=== PATIENT | male | born 1970 | race Caucasian/White ===

== ENCOUNTER 2017-07-15 03:47 | Emergency (ER) ==
[2017-07-15 03:47] VITALS: BMI 34.2
[2017-07-15 03:54] VITALS: BP 134/92; TEMP 97.6
[2017-07-15] MEDS ORDERED: SODIUM CHLORIDE 1,000 ML IV STA ×2 (03:59)
[2017-07-15] MEDS ORDERED: ZOFRAN 4 MG/2 ML IVP STA (03:59)
[2017-07-15] MEDS ORDERED: DILAUDID 1 MG/ML SYRINGE IVP STA (04:00)
[2017-07-15 04:11] LABS: BASOPHILS # (AUTO) 0.1 K/uL (0-0.2); BASOPHILS % (AUTO) 0.8 % (0.0-3.0); EOSINOPHILS # (AUTO) 0.4 K/ul (0.0-0.7); EOSINOPHILS % (AUTO) 4.6 % (0.0-7.0); HEMATOCRIT 44.8 % (42.0-52.0); HEMOGLOBIN 15.3 g/dl (14.0-18.0); IMMATURE GRANULOCYTE % (AUTO) 0.3 % (0.0-5.0); LYMPHOCYTES % (AUTO) 22.1 (10.0-50.0); MEAN CORPUSCULAR HGB CONC 34.2 (31.8-35.4); MONOCYTES # (AUTO) 0.6 K/uL (0.4-2.0); MONOCYTES % (AUTO) 6.7 (0-10); NEUTROPHILS % (AUTO) 65.5; PLATELET COUNT 201 10^3/uL (140-440); RED BLOOD COUNT 5.27 10^6/ul (4.70-6.10); WHITE BLOOD COUNT 9.21 K/ul (4.2-10.2)
[2017-07-15 04:13] LABS: BILIRUBIN,URINE Negative (NEGATIVE); KETONES,URINE Negative (NEGATIVE); LEUKOCYTE ESTERASE ,URINE Negative (NEGATIVE); NITRITE,URINE Negative (NEGATIVE); PROTEIN,URINE 1+ (NEGATIVE); URINE, BLOOD 1+ (NEGATIVE)
[2017-07-15 04:14] LABS: ADD URINE MICROSCOPIC YES
[2017-07-15 04:47] LABS: ALBUMIN 3.8 g/dL (3.4-5.0); ALBUMIN/GLOBULIN RATIO 1.15; ANION GAP 15.8; BILIRUBIN,TOTAL 0.57 mg/dL (0.00-1.20); BUN/CREATININE RATIO 13.84; CALCIUM 8.9 mg/dL (8.2-10.2); CREATININE 1.3 mg/dL (0.60-1.10); POTASSIUM 3.8 mmol/L (3.5-5.1); TOTAL PROTEIN 7.1 g/dL (6.4-8.2); TROPONIN I 0.018 ng/ml (0.0000-0.4000)
[2017-07-15 04:48] LABS: CREATINE KINASE MB 1.8 ng/ml (0.0-3.6)
--- NOTE | 2017-07-15 05:00 | CT ---
EXAM: CT abdomen pelvis without intravenous contrast 07/15/2017. Sagittal and coronal reformatted i mages obtained HISTORY: Abdominal pain and vomiting COMPARISON: 09/10/2016. FINDINGS: The liver and gallbladder show no acute abnormality. The adrenal glands and kidneys show no acute process. Benign appearing exophytic cyst of the right [place]. There is no urinary obstruction. The spleen and pancreas show no acute abnormality. There is no bowel obstruction. Normal appendix. Unremarkable urinary bladder. No free air or free fluid. IMPRESSION: 1. No urinary or bowel obstruction and normal appendix. 2. Benign right renal cyst. 3. No acute inflammatory process identified within the abdomen or pelvis within the limitation of a noncontrast enhanced examination.
--- NOTE | 2017-07-15 06:27 | ED.PDOC ---
General ED Provider: Dr. LISA CARPENTER-ER Chief Complaint: Nausea/Vomiting Stated Complaint: zaynab been hurtingt since i ate at [employer] Time Seen by Physician: 04:00 Mode of Arrival: Walk-In Information Source: Patient Exam Limitations: No limitations Primary Care Provider: LISA CARPENTER Nursing and Triage Documentation Reviewed and Agree: Yes GI Complaint Exam - Abdominal Pain Complaint/Exam Onset: Gradual Duration: several hours Symptoms Are: Still present Timing: Intermittent Initial Severity: Mild Current Severity: Mild Location of Pain: Discrete, Epigastric Radiates To: Reports: Back Character: Reports: Dull, Aching, Cramping Aggravating: Reports: Eating Alleviating: Reports: Spontaneous resolution Associated Signs and Symptoms: Reports: Nausea, Vomiting AAA Risk Factors: Reports: None Surgical Obstruction Risk Factors: Reports: None Related Surgical History: Reports: None Abdominal Findings: Present: None Differential Diagnoses: Constipation, Gastroenteritis, Pancreatitis, GB Quality Indicator For Non-Traumatic Chest Pain/Syncope: EKG Performed Review of Systems - Review Of Systems Constitutional: Reports: No symptoms Eyes: Reports: No symptoms Ears, Nose, Mouth, Throat: Reports: No symptoms Respiratory: Reports: No symptoms Cardiac: Reports: No symptoms GI: Reports: Abdominal pain, Nausea, Vomiting : Reports: No symptoms Musculoskeletal: Reports: No symptoms Skin: Reports: No symptoms Neurological: Reports: No symptoms Endocrine: Reports: No symptoms Hematologic/Lymphatic: Reports: No symptoms All Other Systems: Reviewed and Negative Past Medical History - Past Medical History Previously Healthy: Yes Endocrine: Reports: None Cardiovascular: Reports: None Respiratory: Reports: None Hematological: Reports: None Gastrointestinal: Reports: None, GERD Genitourinary: Reports: None, Kidney stones Neuro/Psych: Reports: None Musculoskeletal: Reports: None Cancer: Reports: None - Surgical History General Surgical History: Reports: None, Tonsillectomy - Family History Family History: Reports: None - Social History Smoking Status: Former smoker Hx Substance Use: No Alcohol Screening: None Lives: With family - Immunizations Tetanus Shot up to Date: (UNKNOWN) Physical Exam - Physical Exam Appearance: Well-appearing, No pain distress, Well-nourished Pain Distress: Moderate Eyes: KEITH, EOMI, Conjunctiva clear ENT: Ears normal Neck: Supple Respiratory: Airway patent, Breath sounds clear, Breath sounds equal, Respirations nonlabored Cardiovascular: RRR, Pulses normal, No rub, No murmur GI/: Soft, Nontender, No masses, Bowel sounds normal, No Organomegaly Musculoskeletal: Normal strength, ROM intact, No edema, No calf tenderness Skin: Warm Neurological: Sensation intact Psychiatric: Affect appropriate Interpretation - Radiology Interpretation Radiology Interpretation By: Radiologist Radiology Results: Negative Exam Interpreted: CT Scan Re-Evaluation - Re-Evaluation Time of Re-Evaluation: 06:26 Status: Improved (no pain or nausea) Vital Signs Stable: Yes Pain Level: 0 Appearance: NAD Lungs: Clear Skin: Warm and Dry Neuro: Alert and Oriented X3 CV: RRR Critical Care Note - Critical Care Note Total Time (mins): 0 Course - Course Hematology/Chemistry: 07/15/17 04:05 07/15/17 04:05 Orders, Labs, Meds: Lab Review 07/15/17 07/15/17 07/15/17 04:05 04:05 04:05 WBC 9.21 RBC 5.27 Hgb 15.3 Hct 44.8 MCV 85.0 MCH 29.0 MCHC 34.2 RDW Coeff of [place] 13.3 Plt Count 201 Immature Gran % (Auto) 0.3 Neut % (Auto) 65.5 Lymph % (Auto) 22.1 [place] % (Auto) 6.7 Eos % (Auto) 4.6 Baso % (Auto) 0.8 Immature Gran # (Auto) 0.0 Neut # 6.0 Lymph # 2.0 [place]ard # 0.6 Eos # 0.4 Baso # 0.1 Sodium 141 Potassium 3.8 Chloride 105 Carbon Dioxide 24 Anion Gap 15.8 BUN 18 Creatinine 1.30 H Estimated GFR (MDRD) 59.00 BUN/Creatinine Ratio 13.84 Glucose 139 H Calcium 8.9 Total Bilirubin 0.57 AST 20 ALT 27 Alkaline Phosphatase 80 Total Creatine Kinase 232 CK-MB (CK-2) 1.8 CK-MB (CK-2) % 0.43045 Troponin I 0.0180 Total Protein 7.1 Albumin 3.8 Globulin 3.3 Albumin/Globulin Ratio 1.15 Amylase 55 Lipase 13 Urine Color Yellow Urine Clarity Clear Urine pH 7.0 Ur Specific [place] 1.020 Urine Protein 1+ Urine Glucose (UA) Negative Urine Ketones Negative Urine Blood 1+ Urine Nitrite Negative Urine Bilirubin Negative Urine Urobilinogen 1.0 Ur Leukocyte Esterase Negative Urine Microscopic RBC 2-5 Ur Squamous Epith Cells 5-10 Orders Category Date Time Status EKG-(ED ONLY) Stat CARDIO 07/15/17 03:58 Completed ED IV/MEDIPORT/POWERPORT .ONCE EMERGENCY 07/15/17 03:59 Active AMYLASE Stat LAB 07/15/17 04:05 Completed CBC W/ AUTO DIFF Stat LAB 07/15/17 04:05 Completed COMPREHENSIVE METABOLIC PANEL Stat LAB 07/15/17 04:05 Completed CREATINE KINASE Stat LAB 07/15/17 04:05 Completed LIPASE Stat LAB 07/15/17 04:05 Completed TROPONIN I Stat LAB 07/15/17 04:05 Completed URINALYSIS C & S IF INDICATED Stat LAB 07/15/17 04:05 Completed 0.9 % Sodium Chloride [Saline Flush] MEDS 07/15/17 03:59 Ordered 1 syr IVF PRN PRN Hydromorphone HCl [Dilaudid 1 mg/ml Syringe] MEDS 07/15/17 04:00 Discontinued 1 mg IVP ONCE STA Ondansetron HCl/Pf [Zofran 4 mg/2 ml] MEDS 07/15/17 03:59 Discontinued 4 mg IVP ONCE STA Sodium Chloride 0.9% [Sodium Chloride] 1,000 ml MEDS 07/15/17 03:59 Discontinued IV BOLUS Sodium Chloride 0.9% [Sodium Chloride] 1,000 ml MEDS 07/15/17 03:[address] ABDOMEN/PELVIS WO CONTRAST Stat RADS 07/15/17 04:00 Completed Medications Generic Name Dose Route Start Last Admin Trade Name Freq PRN Reason Stop Dose Admin Sodium Chloride 1 syr 07/15/17 03:59 07/15/17 04:12 Saline Flush IVF 1 syr PRN PRN Administration To flush IV Discontinued Medications Generic Name Dose Route Start Last Admin Trade Name Freq PRN Reason Stop Dose Admin Hydromorphone HCl 1 mg 07/15/17 04:00 07/15/17 04:20 Dilaudid 1 Mg/Ml Syringe IVP 07/15/17 04:01 1 mg ONCE STA Administration Sodium Chloride 1,000 mls @ 1,000 mls/hr 07/15/17 03:59 07/15/17 05:25 Sodium Chloride IV 07/15/17 04:58 1,000 mls/hr BOLUS STA Administration Sodium Chloride 1,000 mls @ 1,000 mls/hr 07/15/17 03:59 07/15/17 04:14 Sodium Chloride IV 07/15/17 04:58 1,000 mls/hr BOLUS STA Administration Ondansetron HCl 4 mg 07/15/17 03:59 07/15/17 04:15 Zofran 4 Mg/2 Ml IVP 07/15/17 04:00 4 mg ONCE STA Administration Vital Signs: Temp Pulse Resp BP Pulse Ox 07/15/17 03:47 97.6 F 65 20 134/92 H 98 Departure - Departure Time of Disposition: 06:26 Disposition: HOME SELF-CARE Discharge Problem: Abdominal pain Qualifiers: Abdominal location: right upper quadrant Qualified Code(s): R10.11 - Right upper quadrant pain Instructions: Acute Abdominal Pain (ED) Condition: Good Pt referred to PMD for follow-up: Yes Additional Instructions: low fat diet--zofan 4mg q 4hrs prn #4--if pain returns consider gb testing Allergies/Adverse Reactions: Allergies codeine Adverse Reaction (Verified 07/15/17 03:54) Vomiting Home Medications: Ambulatory Orders Esomeprazole Magnesium [Nexium] 40 mg PO DAILY 01/12/15 Disposition Discussed With: Patient
== END 2017-07-15 06:36 | disposition home or self-care (01) ==
LOC: ED 03:47
DX: R10.11 Right upper quadrant pain (principal); R11.2 Nausea with vomiting, unspecified; Z87.442 Personal history of urinary calculi
CPT/HCPCS: 36415; 80053; 81001; 82150; 82550; 82553; 83690; 84484; 85025; 93005; 93010; 96361; 96374; 96375; 99283

== ENCOUNTER 2018-07-13 13:32 | Outpatient (RCR) ==
--- NOTE | 2018-07-13 14:44 | RS.CSNOTE ---
PT Case Note Date of Note: 07/13/18 Note: pt arrived for PT angel. pt reports his pain is much more severe today after going to chiropractor yesterday for adjustment. pt states that he was not having pain in L side or into L LE. pt rates pain /10 with radiating pain and n /t BLE, R worse than L. Called and spoke with Katerina at Dr. Dueñas's office to report increase in pain and new onset of pain on L side. She states to hold PT today until pt sees Dr. Dueñas on 07/16/18. She also states to tell pt if pain becomes unbearable to go to ER. Pt notified and in agreement. pt to call after MD ackermant.
== END 2018-07-29 23:59 ==
PROVIDERS: ATTEND Nurse Practitioner Family
DX: M54.41 Lumbago with sciatica, right side (principal); G89.29 Other chronic pain; R20.0 Anesthesia of skin; R20.2 Paresthesia of skin

== ENCOUNTER 2018-10-29 17:59 | Emergency (ER) ==
[2018-10-29 18:05] VITALS: BP 146/109; TEMP 99.3; BMI 35.9
[2018-10-29] MEDS ORDERED: ZOFRAN 4 MG/2 ML IM STA (18:28)
--- NOTE | 2018-10-29 18:28 | ED.PDOC ---
General Stated Complaint: abdominal pain Time Seen by Physician: 18:00 Mode of Arrival: Walk-In Information Source: Family Exam Limitations: No limitations Nursing and Triage Documentation Reviewed and Agree: Yes Does patient meet sepsis criteria?: No System Inflammatory Response Syndrome: Not Applicable <ALEXIA CASTRO - Last Filed: 10/29/18 18:25> <LISA MARCELINO - Last Filed: 10/29/18 20:06> ED Provider: Dr. LISA CARPENTER-WALI Chief Complaint: Abdominal Pain Primary Care Provider: LISA CARPENTER Sepsis Protocol: For patient's 13 years and over: Temp is 96.8 and below OR 101 and greater Pulse >90 BPM Resp >20/minute Acutely Altered Mental Status Are patient's symptoms suggestive of a new infection, such as: -Pneumonia -Skin, Soft Tissue -Endocarditis -UTI -Bone, Joint Infection -Implantable Device -Acute Abdominal Infection -Wound Infection -Meningitis -Blood Stream Catheter Infection -Unknown GI Complaint Exam - Abdominal Pain Complaint/Exam Onset: Gradual Duration: 2 days Symptoms Are: Resolved Timing: Intermittent Initial Severity: Moderate Current Severity: Moderate Location of Pain: Epigastric Radiates To: Denies: Chest, Back, Flank, LLQ, RLQ, Inguinal Character: Reports: Cramping Aggravating: Reports: None Alleviating: Reports: None Associated Signs and Symptoms: Denies: Diaphoresis, Fever, Cough, Chest pain, Dizziness, Back pain, Constipation, Blood in stool, Dysuria, Urinary frequency, Decreased urine output, Decreased appetite, Discharge, Nausea, Vomiting, Diarrhea, Decreased activity AAA Risk Factors: Reports: None Cardiac Risk Factors: Reports: None Testicular Torsion Risk Factors: Reports: None Surgical Obstruction Risk Factors: Reports: None Related Surgical History: Reports: None Differential Diagnoses: Appendicitis, Bowel Obstruction, Constipation, Diverticulitis, Gastroenteritis, Pancreatitis, PUD, UTI Quality Indicators for Cardiac Chest Pain: EKG in 10min. Quality Indicator For Non-Traumatic Chest Pain/Syncope: EKG Performed <ALEXIA CASTRO - Last Filed: 10/29/18 18:25> Review of Systems - Review Of Systems Constitutional: Reports: No symptoms Eyes: Reports: No symptoms Ears, Nose, Mouth, Throat: Reports: No symptoms Respiratory: Reports: No symptoms Cardiac: Reports: No symptoms GI: Reports: Abdominal pain, Vomiting : Reports: No symptoms Musculoskeletal: Reports: No symptoms Skin: Reports: No symptoms Neurological: Reports: No symptoms Endocrine: Reports: No symptoms Hematologic/Lymphatic: Reports: No symptoms All Other Systems: Reviewed and Negative <ALEXIA CASTRO Last Filed: 10/29/18 18:25> Past Medical History - Past Medical History Previously Healthy: Yes Endocrine: Reports: None Cardiovascular: Reports: None Respiratory: Reports: None Hematological: Reports: None Gastrointestinal: Reports: None, GERD Genitourinary: Reports: None, Kidney stones Neuro/Psych: Reports: None Musculoskeletal: Reports: None Cancer: Reports: None - Surgical History General Surgical History: Reports: None, Tonsillectomy - Family History Family History: Reports: None - Social History Smoking Status: Former smoker Hx Substance Use: No Alcohol Screening: None <ALEXIA CASTRO Last Filed: 10/29/18 18:25> Physical Exam - Physical Exam Appearance: Well-appearing, No pain distress, Well-nourished Eyes: KEITH, EOMI, Conjunctiva clear ENT: Ears normal, Nose normal, Oropharynx normal Respiratory: Airway patent, Breath sounds clear, Breath sounds equal, Respirations nonlabored Cardiovascular: RRR, Pulses normal, No rub, No murmur GI/: Soft, Nontender, No masses, Bowel sounds normal, No Organomegaly Musculoskeletal: Normal strength, ROM intact, No edema, No calf tenderness Skin: Warm, Dry, Normal color Neurological: Sensation intact, Motor intact, Reflexes intact, Cranial nerves intact, Alert, Oriented Psychiatric: Affect appropriate, Mood appropriate <ALEXIA CASTRO Last Filed: 10/29/18 18:25> Interpretation - Radiology Interpretation Radiology Interpretation By: Radiologist Radiology Results: Positive Exam Interpreted: CT Scan <LISA MARCELINO - Last Filed: 10/29/18 20:06> Re-Evaluation - Re-Evaluation Time of Re-Evaluation: 20:03 Status: Improved Vital Signs Stable: Yes Pain Level: 1 Appearance: NAD Lungs: Clear Skin: Warm and Dry Neuro: Alert and Oriented X3 CV: RRR <LISA MARCELINO - Last Filed: 10/29/18 20:06> Critical Care Note - Critical Care Note Total Time (mins): 0 <ALEXIA CASTRO Last Filed: 10/29/18 18:25> Course - Course Hematology/Chemistry: 10/29/18 18:40 10/29/18 18:40 <LISA MARCELINO - Last Filed: 10/29/18 20:06> - Course Orders, Labs, Meds: Lab Review 10/29/18 10/29/18 10/29/18 18:25 18:40 18:40 WBC 13.90 H RBC 5.04 Hgb 14.7 Hct 44.1 MCV 87.5 MCH 29.2 MCHC 33.3 RDW Coeff of [place] 13.2 Plt Count 201 Immature Gran % (Auto) 0.3 Neut % (Auto) 77.2 Lymph % (Auto) 13.0 [place] % (Auto) 6.5 Eos % (Auto) 2.6 Baso % (Auto) 0.4 Immature Gran # (Auto) 0.0 Neut # (Auto) 10.7 H Lymph # (Auto) 1.8 [place] # (Auto) 0.9 Eos # (Auto) 0.4 Baso # (Auto) 0.1 Sodium 135.9 Potassium 4.27 Chloride 101.9 Carbon Dioxide 29.2 Anion Gap 9.07 BUN 14.3 Creatinine 1.26 H Estimated GFR (MDRD) 61.00 BUN/Creatinine Ratio 11.34 Glucose 111.4 H Calcium 9.16 Total Bilirubin 0.84 AST 23.4 ALT 34.2 Alkaline Phosphatase 91.5 Total Protein 7.42 Albumin 4.25 Globulin 3.17 Albumin/Globulin Ratio 1.34 Amylase 97.0 Lipase 127.4 Urine Color Yellow Urine Clarity Clear Urine pH 6.5 Ur Specific [place] 1.020 Urine Protein Negative Urine Glucose (UA) Negative Urine Ketones Negative Urine Blood 1+ Urine Nitrite Negative Urine Bilirubin Negative Urine Urobilinogen 0.2 Ur Leukocyte Esterase Negative Urine Microscopic RBC 10-20 Urine Microscopic WBC 2-5 Ur Squamous Epith Cells 10-20 Urine Bacteria Trace Urine Mucus 1+ Influ A Molecular Assay Influ B Molecular Assay 10/29/18 18:43 WBC RBC Hgb Hct MCV MCH MCHC RDW Coeff of [place]ook Plt Count Immature Gran % (Auto) Neut % (Auto) Lymph % (Auto) [place] % (Auto) Eos % (Auto) Baso % (Auto) Immature Gran # (Auto) Neut # (Auto) Lymph # (Auto) [place] # (Auto) Eos # (Auto) Baso # (Auto) Sodium Potassium Chloride Carbon Dioxide Anion Gap BUN Creatinine Estimated GFR (MDRD) BUN/Creatinine Ratio Glucose Calcium Total Bilirubin AST ALT Alkaline Phosphatase Total Protein Albumin Globulin Albumin/Globulin Ratio Amylase Lipase Urine Color Urine Clarity Urine pH Ur Specific [place] Urine Protein Urine Glucose (UA) Urine Ketones Urine Blood Urine Nitrite Urine Bilirubin Urine Urobilinogen Ur Leukocyte Esterase Urine Microscopic RBC Urine Microscopic WBC Ur Squamous Epith Cells Urine Bacteria Urine Mucus Influ A Molecular Assay Negative by naat Influ B Molecular Assay Negative by naat Orders Category Date Time Status EKG-(ED ONLY) Stat CARDIO 10/29/18 18:28 Ordered AMYLASE Stat LAB 10/29/18 18:40 Completed CBC W/ AUTO DIFF Stat LAB 10/29/18 18:40 Completed COMPREHENSIVE METABOLIC PANEL Stat LAB 10/29/18 18:40 Completed FLU A/B MOLECULAR Stat LAB 10/29/18 18:43 Completed LIPASE Stat LAB 10/29/18 18:40 Completed MOLECULAR GROUP A STREP Stat LAB 10/29/18 18:43 Completed URINALYSIS C & S IF INDICATED Stat LAB 10/29/18 18:25 Completed Hydromorphone HCl [Dilaudid 1 mg/ml Syringe] MEDS 10/29/18 19:45 Discontinued 1 mg .ROUTE .STK-MED ONE Hydromorphone HCl [Dilaudid 1 mg/ml Syringe] MEDS 10/29/18 19:43 Discontinued 1 mg IM ONCE STA Ondansetron HCl/Pf [Zofran 4 mg/2 ml] MEDS 10/29/18 18:28 Discontinued 4 mg IM ONCE STA CT ABDOMEN/PELVIS WO CONTRAST Stat RADS 10/29/18 19:05 Completed Medications Discontinued Medications Generic Name Dose Route Start Last Admin Trade Name Freq PRN Reason Stop Dose Admin Hydromorphone HCl 1 mg 10/29/18 19:43 10/29/18 19:49 Dilaudid 1 Mg/Ml Syringe IM 10/29/18 19:44 1 mg ONCE STA Administration Ondansetron HCl 4 mg 10/29/18 18:28 10/29/18 18:43 Zofran 4 Mg/2 Ml IM 10/29/18 18:29 4 mg ONCE STA Administration Vital Signs: Temp Pulse Resp BP Pulse Ox 10/29/18 18:00 99.3 F 104 H 20 146/109 H 95 Departure - Departure Pt referred to PMD for follow-up: Yes IPMP verified?: No <ALEXIA CASTRO - Last Filed: 10/29/18 18:25> - Departure Time of Disposition: 20:03 Pt referred to PMD for follow-up: Yes IPMP verified?: No Disposition Discussed With: Patient <LISA MARCELINO - Last Filed: 10/29/18 20:06> - Departure Disposition: HOME SELF-CARE Discharge Problem: Abdominal pain Pancreatitis Qualifiers: Chronicity: acute Pancreatitis type: unspecified pancreatitis type Acute pancreatitis complication: unspecified Qualified Code(s): K85.90 - Acute pancreatitis without necrosis or infection, unspecified Instructions: Acute Abdominal Pain (DC) Condition: Good Additional Instructions: clear liquids---zofran 4mg q 4hrs prn nausea #4---slowly advance the diet Allergies/Adverse Reactions: Allergies codeine Adverse Reaction (Verified 10/29/18 18:06) Vomiting Home Medications: Ambulatory Orders Esomeprazole Magnesium [Nexium] 40 mg PO DAILY 01/12/15
--- NOTE | 2018-10-29 19:35 | CT ---
EXAM: CT of the abdomen pelvis without contrast History: Upper abdominal pain, nausea and vomiting. Comparison: CT abdomen pelvis 07/15/2017 Technique: Multiplanar CT images through the abdomen pelvis were obtained without the administration of IV contrast Findings: Lung bases are clear. No acute osseous abnormalities. Postsurgical changes of the lumbar spine. The liver is fatty. No discrete gallstones identified by CT. Simple right renal cyst again noted. Adrenal glands are unremarkable. No renal stones and no hydronephrosis. No ureteral calculi. There is peripancreatic inflammation and the pancreas is edematous, especially involving the pancreatic he ad. No bowel obstruction. The appendix is normal. No bladder wall thickening. No free air and no ascites. Scattered colonic stool. Small fat-containing umbilical hernia. Prostate is not enlarged Impression: 1. Acute pancreatitis. 2. Hepatic steatosis. 3. Simple right renal cyst
[2018-10-29] MEDS ORDERED: DILAUDID 1 MG/ML SYRINGE IM STA (19:43)
[2018-10-29] MEDS ORDERED: DILAUDID 1 MG/ML SYRINGE ONE (19:45)
== END 2018-10-29 20:14 | disposition home or self-care (01) ==
LOC: ED 17:59
DX: K85.90 Acute pancreatitis without necrosis or infection, unspecified (principal); R10.9 Unspecified abdominal pain; Z87.442 Personal history of urinary calculi
CPT/HCPCS: 36415; 80053; 81001; 82150; 83690; 85025; 87502; 87651; 93005; 93010; 96372; 99283